=== PATIENT | male | born 1975 | race Caucasian/White ===

== ENCOUNTER 2017-09-19 19:35 | Emergency (ER) | payer OTHER ==
[2017-09-19 19:46] VITALS: BP 132/84
[2017-09-19] MEDS ORDERED: POLYMYXIN B/TRIMETH OPHTH DROPS RIGHTEYE STA (20:26)
[2017-09-19] MEDS ORDERED: PROPARACAINE 0.5% OPHTH DROPS 15 ML RIGHTEYE STA (20:26)
--- NOTE | 2017-09-19 20:40 | ED Physician Documentation ---
PD HPI OPHTHO - Stated complaint Stated Complaint: RED RT EYE - Chief complaint Chief Complaint: Heent - History obtained from History obtained from: Patient - History of Present Illness Timing - onset: Yesterday Timing - details: Gradual onset, Still present Location: Right Quality / character: Burning, Aching Associated symptoms: Discharge Contributing factors: FB Similar symptoms before: No diagnosis Recently seen: Not recently seen - Additional information Additional information: Patient is a 41 year old male with no significant past medical history who is presenting to the emergency department for right eye discharge and irritation. Patient states that he thinks he got something in his eye when he was either cleaning out the litter box, or sweeping. Patient reports yellow discharge for the last day or so. Review of Systems Constitutional: denies: Fever, Chills Eyes: reports: Decreased vision, Discharge, Irritation Ears: reports: Reviewed and negative Nose: reports: Reviewed and negative Throat: reports: Reviewed and negative Cardiac: reports: Reviewed and negative Respiratory: reports: Reviewed and negative GI: reports: Reviewed and negative : reports: Reviewed and negative Skin: reports: Reviewed and negative Musculoskeletal: reports: Reviewed and negative Neurologic: denies: Headache, Head injury Psychiatric: reports: Reviewed and negative Endocrine: reports: Reviewed and negative Immunocompromised: denies: Immunocompromised PD PAST MEDICAL HISTORY - Past Medical History Past Medical History: Yes Respiratory: Asthma - Past Surgical History Past Surgical History: Yes General: Cholecystectomy, Appendectomy Ortho: Other - Present Medications Home Medications: Ambulatory Orders Medication Instructions Recorded Confirmed Montelukast [Singulair] 1 tab PO DAILY 09/19/17 09/19/17 - Allergies Allergies/Adverse Reactions: Allergies Allergy/AdvReac Type Severity Reaction Status Date / Time Penicillins Allergy Anaphylaxis Verified 09/19/17 19:46 - Social History Does the pt smoke?: No Smoking Status: Never smoker Does the pt drink ETOH?: No Does the pt have substance abuse?: No - Immunizations Immunizations are current?: Yes - POLST Patient has POLST: No PD ED PE NORMAL - Vitals Vital signs reviewed: Yes - General General: Alert and oriented X 3 - HEENT HEENT: Atraumatic, Moist mucous membranes, Pharynx benign - Neck Neck: Supple, no meningeal sign - Cardiac Cardiac: RRR - Respiratory Respiratory: No respiratory distress - Abdomen Abdomen: Soft - Derm Derm: Normal color - Extremities Extremities: No deformity - Neuro Neuro: Alert and oriented X 3, No motor deficit, No sensory deficit, Normal speech Eye Opening: Spontaneous Motor: Obeys Commands Verbal: Oriented GCS Score: 15 PD ED PE EXPANDED - Eyes Eyes: Right eye, Injected conj/sclera, Exudate, Anterior chambers clear. No: Corneal FB, Corneal abrasion, Corneal ulcer, Fluorescein uptake Results - Vitals Vitals: Vital Signs - 24 hr 09/19/17 19:43 Temperature 36.4 C L Heart Rate 66 Respiratory 14 Rate Blood Pressure 132/84 H O2 Saturation 98 Oxygen O2 Source Room air PD MEDICAL DECISION MAKING - ED course Complexity details: reviewed old records, reviewed results, re-evaluated patient , considered differential, d/w patient ED course: Patient was seen and examined at bedside. Patient's eye was viewed with fluorosceine. Patient had no corneal abrasion. Patient was started on antibiotic drops. Patient required no further work up at this time and was stable for discharge wi outpatient follow up. Departure - Departure Disposition: 01 Home, Self Care Clinical Impression: Bacterial conjunctivitis of right eye Condition: Good Instructions: ED Conjunctivitis Bacterial Follow-Up: primary,care provider [Other] - As Needed Comments: Your symptoms today are being caused by bacterial conjunctivitis. There is no cut on your eye. You will need to take eye drops 4 times a day. Make sure you wash your hands before touching anyone else. You should follow up with your eye doctor if your symptoms don't improve. You may return to the emergency department at any time for new, worsening or uncontrollable symptoms. Discharge Date/Time: 09/19/17 20:41
== END 2017-09-19 20:41 | disposition home or self-care (01) ==
LOC: ED 19:35
DX: H10.9 Unspecified conjunctivitis (principal); B96.89 Other specified bacterial agents as the cause of diseases classified elsewhere
CPT/HCPCS: 99283; A9270; J3490

== ENCOUNTER 2019-06-23 22:31 | Outpatient (CLI) | payer BC, OTHER | END 2019-06-23 22:32 | disposition critical access hospital (66) | LOC: EMS 22:31 | PROVIDERS: ATTEND Surgery | DX: R42 Dizziness and giddiness (principal) | CPT/HCPCS: A0425; A0429 ==

== ENCOUNTER 2019-06-23 22:49 | Emergency (ER) | payer BC, OTHER ==
[2019-06-24 00:07] LABS: BASOPHILS % (AUTO) 0.4 %; EOSINOPHILS % (AUTO) 0.5 %; HGB - HEMOGLOBIN 16.4 g/dL (14.0-18.0); LYMPHOCYTES # (AUTO) 0.5 10^3/uL (1.5-3.5); LYMPHOCYTES % (AUTO) 8.5 %; MEAN CORPUSCULAR HEMOGLOBIN 30.4 pg (27.0-31.0); MEAN CORPUSCULAR HGB CONC 34.2 g/dL (32.0-36.0); MEAN CORPUSCULAR VOLUME 88.9 fL (80.0-94.0); MEAN PLATELET VOLUME 9.3 fL (7.4-11.4); MONOCYTES # (AUTO) 0.3 10^3/uL (0.0-1.0); MONOCYTES % (AUTO) 5.6 %; NEUTROPHILS # (AUTO) 4.8 10^3/uL (1.5-6.6); NEUTROPHILS % (AUTO) 84.6 %; PLT - PLATELET COUNT 173 10^3/uL (130-450); RED CELL DISTRIBUTION WIDTH 13.5 % (12.0-15.0); WHITE BLOOD COUNT 5.7 x10^3/uL (4.8-10.8)
[2019-06-24 00:21] LABS: ALBUMIN 3.9 g/dL (3.2-5.5); ALBUMIN/GLOBULIN RATIO 1.5 (1.0-2.2); BILIRUBIN,TOTAL 0.8 mg/dL (0.2-1.0); CALCIUM 8.2 mg/dL (8.5-10.3); TOTAL PROTEIN 6.5 g/dL (6.7-8.2)
--- NOTE | 2019-06-24 01:10 | ED Physician Documentation ---
PD HPI SYNCOPE - Stated complaint Stated Complaint: ABD, NAUSEA, DIZZY, NEAR SYNCOPE - Chief complaint Chief Complaint: Abd Pain - History obtained from History obtained from: Patient, Family - History of Present Illness Witnessed: Unwitnessed Timing - onset: Today Duration: Seconds Preceding symptoms: Vision changes, Diaphoresis, Abdominal pain, Nausea / vomiting, Light headed, Generalized weakness Associated symptoms: Nausea / vomiting, Abdominal pain Contributing factors: Just stood up Injury occurred: None Similar symptoms before: Has not had sx before Recently seen: Not recently seen - Additional information Additional information: Previously well 43-year-old male began to develop some abdominal discomfort around 1 PM today and he went home, was not feeling well, laid down in bed, and he got up later to going to the bathroom when he felt like he might need to throw up. He sat down on the commode he became diaphoretic and lightheaded. He went to stand up and felt near syncope collapsed to the ground did not injure himself and called out to his . She came to find him in the bathroom against the door uninjured but not entirely normal. She states that his eyes were not tracking well and he had a weak voice. By the time medics arrived he had improved and he is transported the hospital now no longer feeling nauseous. He denies any fever associated with this he denies any cough or nasal congestion states that he was not feeling ill prior to today. He does state that he has children at home who attends school and that other children at that school have been sick with a GI illness. His own children are not sick with GI illness. The patient denies any diarrhea and he refused antinausea medicine in the ambulance stating that he was no longer feeling nauseated. The patient has a history of cholecystectomy appendectomy and migraine headaches. He believes he may have had at one time a grand mal seizure years ago and states that he is uncertain whether he actually had a seizure or not. Review of Systems Constitutional: reports: Fatigue, Sweats. denies: Fever, Chills Eyes: denies: Decreased vision Ears: denies: Ear pain Nose: denies: Rhinorrhea / runny nose, Congestion Throat: denies: Sore throat Cardiac: denies: Chest pain / pressure, Palpitations Respiratory: denies: Dyspnea, Cough GI: reports: Abdominal Pain, Nausea. denies: Vomiting, Diarrhea : denies: Dysuria, Frequency Skin: denies: Rash Musculoskeletal: denies: Neck pain, Back pain, Extremity pain Neurologic: reports: Near syncope. denies: Generalized weakness, Focal weakness, Numbness, Headache, Head injury, LOC PD PAST MEDICAL HISTORY - Past Medical History Past Medical History: Yes Respiratory: Asthma Neuro: None - Past Surgical History Past Surgical History: Yes General: Cholecystectomy, Appendectomy Ortho: Other - Present Medications Home Medications: Ambulatory Orders Medication Instructions Recorded Confirmed Montelukast [Singulair] 1 tab PO DAILY 09/19/17 09/19/17 - Allergies Allergies/Adverse Reactions: Allergies Allergy/AdvReac Type Severity Reaction Status Date / Time Penicillins Allergy Anaphylaxis Verified 06/23/19 22:55 - Social History Does the pt smoke?: No Smoking Status: Never smoker Does the pt drink ETOH?: No Does the pt have substance abuse?: No - Immunizations Immunizations are current?: Yes - POLST Patient has POLST: No PD ED PE NORMAL - Vitals Vital signs reviewed: Yes (low grade fever and hypertension ) - General General: Alert and oriented X 3, No acute distress, Well developed/nourished - HEENT HEENT: Atraumatic, PERRL, EOMI - Neck Neck: Supple, no meningeal sign, No bony TTP - Cardiac Cardiac: RRR, No murmur - Respiratory Respiratory: No respiratory distress, Clear bilaterally - Abdomen Abdomen: Normal bowel sounds, Soft, Non tender, Non distended, No organomegaly - Back Back: No CVA TTP, No spinal TTP - Derm Derm: Normal color, Warm and dry, No rash - Extremities Extremities: No deformity, Normal ROM s pain, No edema, No calf tenderness / cord - Neuro Neuro: Alert and oriented X 3, 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, No motor deficit, No sensory deficit, Normal speech Eye Opening: Spontaneous Motor: Obeys Commands Verbal: Oriented GCS Score: 15 - Psych Psych: Normal mood, Normal affect Results - Vitals Vitals: Vital Signs - 24 hr 06/23/19 06/23/19 06/23/19 22:52 23:01 23:50 Temperature 37.6 C H Heart Rate 76 72 78 Respiratory 18 17 17 Rate Blood Pressure 133/94 H 128/79 O2 Saturation 98 98 98 06/24/19 06/24/19 00:36 01:16 Temperature Heart Rate 75 76 Respiratory 16 16 Rate Blood Pressure 115/74 O2 Saturation 96 95 Oxygen O2 Source Room air - EKG (time done) 0075 Rate: Rate (enter#) (75) Rhythm: NSR Ischemia: Other (T wave inversions in III and aVF) Compare to prior EKG: Old EKG unavailable Computer interpretation: Agree with computer - Labs Labs: Laboratory Tests 06/23/19 06/23/19 06/23/19 23:55 23:55 23:55 WBC 5.7 RBC 5.40 Hgb 16.4 Hct 48.0 MCV 88.9 MCH 30.4 MCHC 34.2 RDW 13.5 Plt Count 173 MPV 9.3 Neut # (Auto) 4.8 Lymph # (Auto) 0.5 L [place] # (Auto) 0.3 Eos # (Auto) 0.0 Baso # (Auto) 0.0 Absolute Nucleated RBC 0.00 Nucleated RBC % 0.0 Sodium 137 Potassium 3.7 Chloride 101 Carbon Dioxide 29 Anion Gap 7.0 BUN 17 Creatinine 1.0 Estimated GFR (MDRD) 81 L Glucose 98 Calcium 8.2 L Total Bilirubin 0.8 AST 32 ALT 37 Alkaline Phosphatase 53 Troponin I High Sens 2.9 Total Protein 6.5 L Albumin 3.9 Globulin 2.6 Albumin/Globulin Ratio 1.5 Lipase 29 PD MEDICAL DECISION MAKING - ED course Complexity details: reviewed old records, reviewed results, re-evaluated patient, considered differential, d/w patient, d/w family ED course: 43-year-old male with a near syncopal episode associated with nausea and diaphoresis appears to have recovered. I suspect he may be in the early phase of a viral illness I have discussed with the patient presenting symptoms and he will follow-up as needed. Departure - Departure Disposition: 01 Home, Self Care Clinical Impression: Vaso vagal episode Condition: Stable Instructions: ED Syncope Vasovagal Follow-Up: [facility] Montoya [Provider Group]
[2019-06-24 01:17] VITALS: BP 115/74
== END 2019-06-24 01:30 | disposition home or self-care (01) ==
LOC: EDUNIT# → ED 22:49
DX: R55 Syncope and collapse (principal); R11.0 Nausea; R61 Generalized hyperhidrosis
CPT/HCPCS: 36415; 80053; 83690; 84484; 85025; 93005; 99284